=== PATIENT | female | born 1990 | race American Indian/Alaskan Native ===

== ENCOUNTER 2016-10-04 15:08 | Emergency (ER) | payer MEDICAID ==
--- NOTE | 2016-10-04 15:32 | Emergency Department Report ---
Chief Complaint: Skin Rash Stated Complaint: BUMP/RASH IN GENITAL AREA/BURNING Time Seen by Provider: 10/04/16 15:30 - HPI History of Present Illness: pt c/o possible allergic reaction to [place]. PT states she used it on her groin 4 days ago. - ROS Review of Systems: + bumps + groin pain - Exam Physical Exam: PT looks well, non toxic. No acute distress in triage MSE screening note: Focused history and physical exam performed. Due to findings the following was ordered: ED Disposition for MSE Condition: Stable
[2016-10-04 15:35] VITALS: BP 115/56
--- NOTE | 2016-10-04 15:54 | Emergency Department Report ---
ED Female HPI - General Chief complaint: Urogenital-Female Stated complaint: BUMP/RASH IN GENITAL AREA/BURNING Time Seen by Provider: 10/04/16 15:30 Source: patient Mode of arrival: Ambulatory Limitations: No Limitations - History of Present Illness Initial comments: Patient reported that she is air products and vaginal area approximately 3 days ago and a couple of small spot that appears to be burnt. She also has bombed. Which is not new. She said two spots to external vaginal area is burning and red with pain 9/10. reports itching. patient on menses. no vaginal discharge. denies abdominal/pelvic pain. No concerns for STD. MD Complaint: other (vaginal rash from shaving) Onset/Timin -: days(s) Location: labia Radiation: non-radiating Severity: severe Severity scale (0 -10): 9 Quality: burning Consistency: constant Improves with: none Worsens with: none Are you Now?: No Associated Symptoms: vaginal bleeding (menses), rash. denies: vaginal discharge , abdominal pain, nausea/vomiting, fever/chills, headaches, loss of appetite, dysuria, hematuria, seizure, shortness of breath, syncope, weakness - Related Data Sexually active: Yes Previous Rx's Medication Instructions Recorded Last Taken Type Fluconazole [Diflucan] 150 mg PO QDAY #1 tablet 12/17/13 Unknown Rx HYDROcodone/APAP 5-325 [[place] 1 each PO Q6HR PRN #14 tablet 12/17/13 Unknown Rx 5-325 mg TAB] Penicillin Vk [Veetids TAB] 2 tab PO BID #40 tablet 12/17/13 Unknown Rx Sulfamethoxazole/Trimethoprim 1 each PO BID #14 tablet 12/17/13 Unknown Rx [Bactrim Ds] Diphenhydramine HCl [Benadryl GEL] 103 ml TP BID #1 gel..ml. 10/04/16 Unknown Rx predniSONE [Deltasone] 20 mg PO QDAY #2 tab 10/04/16 Unknown Rx Allergies Allergy/AdvReac Type Severity Reaction Status Date / Time No Known Allergies Allergy Unverified 10/04/16 16:40 ED Review of Systems ROS: Stated complaint: BUMP/RASH IN GENITAL AREA/BURNING Other details as noted in HPI Comment: All other systems reviewed and negative Constitutional: denies: chills, fever ENT: denies: throat pain Respiratory: no symptoms reported Cardiovascular: denies: chest pain, palpitations, edema, syncope Gastrointestinal: denies: abdominal pain, nausea, vomiting, diarrhea, constipation, hematemesis, melena, hematochezia Genitourinary: other (rash/). denies: urgency, dysuria, frequency, hematuria, discharge, abnormal menses, dyspareunia Musculoskeletal: denies: back pain, joint swelling, arthralgia, myalgia Skin: rash, pruritus Neurological: denies: headache ED Past Medical Hx - Past Medical History Previous Medical History?: No - Surgical History Past Surgical History?: No - Family History Family history: no significant - Social History Smoking Status: Current Every Day Smoker Substance Use Type: None - Medications Home Medications: Home Medications Medication Instructions Recorded Confirmed Last Taken Type Fluconazole [Diflucan] 150 mg PO QDAY #1 tablet 12/17/13 Unknown Rx HYDROcodone/APAP 5-325 [[place] 1 each PO Q6HR PRN #14 tablet 12/17/13 Unknown Rx 5-325 mg TAB] Penicillin Vk [Veetids TAB] 2 tab PO BID #40 tablet 12/17/13 Unknown Rx Sulfamethoxazole/Trimethoprim 1 each PO BID #14 tablet 12/17/13 Unknown Rx [Bactrim Ds] Diphenhydramine HCl [Benadryl GEL] 103 ml TP BID #1 gel..ml. 10/04/16 Unknown Rx predniSONE [Deltasone] 20 mg PO QDAY #2 tab 10/04/16 Unknown Rx ED Physical Exam - General Limitations: No Limitations General appearance: alert, in no apparent distress - Head Head exam: Present: atraumatic, normocephalic, normal inspection - Eye Eye exam: Present: normal appearance, PERRL, EOMI. Absent: conjunctival injection, periorbital swelling, periorbital tenderness Pupils: Present: normal accommodation - ENT ENT exam: Present: normal exam, normal orophraynx, mucous membranes moist, TM's normal bilaterally, normal external ear exam - Neck Neck exam: Present: normal inspection, full ROM. Absent: tenderness, meningismus, lymphadenopathy - Respiratory Respiratory exam: Present: normal lung sounds bilaterally. Absent: respiratory distress, wheezes, rales, rhonchi, stridor, chest wall tenderness - Cardiovascular Cardiovascular Exam: Present: regular rate, normal rhythm, normal heart sounds - GI/Abdominal GI/Abdominal exam: Present: soft, normal bowel sounds. Absent: distended, tenderness, guarding, rebound, rigid - External exam: Present: erythema, other (mons pubis area with small bumps. noerythema, no blisters or vesicles. 2 erythema area to rt distal labia majoria. no induration or fluctuance.no swelling). Absent: swelling, lesions, lacerations, ecchymosis - Extremities Exam Extremities exam: Present: normal inspection, full ROM, normal capillary refill , calf tenderness. Absent: tenderness, pedal edema, joint swelling - Back Exam Back exam: Present: normal inspection, full ROM. Absent: tenderness, CVA tenderness (R), CVA tenderness (L), muscle spasm, paraspinal tenderness, vertebral tenderness, rash noted - Neurological Exam Neurological exam: Present: alert, oriented X3, normal gait, reflexes normal. Absent: motor sensory deficit - Psychiatric Psychiatric exam: Present: normal affect, normal mood - Skin Skin exam: Present: warm, dry, intact, normal color, rash (see for description) ED Course Vital Signs 10/04/16 15:29 Temperature 98.7 F Pulse Rate 74 Respiratory 16 Rate Blood Pressure 115/56 O2 Sat by Pulse 100 Oximetry - Reevaluation(s) Reevaluation #1: 10/04/16 16:35 Uneventful. ED Medical Decision Making - Medical Decision Making ED Course: Patient reported itching and rash to vaginal area after using zeng. Contact dermatitis vaginal area along with shaving bumps. I discussed with patient treatment plan and diagnosis understanding. Patient discharged home with prescription for prednisone 2 days and Benadryl topical. Follow-up with planer feeder in 2-3 days Critical care attestation.: If time is entered above; I have spent that time in minutes in the direct care of this critically ill patient, excluding procedure time. ED Disposition Clinical Impression: Pruritic rash Contact dermatitis Qualifiers: Contact dermatitis type: irritant Contact dermatitis trigger: cosmetics Qualified Code(s): L24.3 - Irritant contact dermatitis due to cosmetics Disposition: DC-01 TO HOME OR SELFCARE Is pt being admited?: No Does the pt Need Aspirin: No Condition: Stable Instructions: Contact Dermatitis (ED) Additional Instructions: Follow-up with planer feeder Take medication as prescribed Prescriptions: Diphenhydramine HCl [Benadryl GEL] 103 ml TP BID #1 gel..ml. predniSONE [Deltasone] 20 mg PO QDAY #2 tab Referrals: PRIMARY CARE, [Primary Care Provider] - 10/06/16 EMPERATRIZ STEPHEN MD [Staff Physician] - 10/06/16 Forms: Work/School Release Form(ED)
== END 2016-10-04 17:02 | disposition home or self-care (01) ==
LOC: ED 15:08
DX: L24.3 Irritant contact dermatitis due to cosmetics (principal); L29.9 Pruritus, unspecified; F17.200 Nicotine dependence, unspecified, uncomplicated
CPT/HCPCS: 99282

== ENCOUNTER 2017-01-04 12:29 | Emergency (ER) | payer SELFPAY ==
[2017-01-04 14:18] VITALS: BP 106/69
--- NOTE | 2017-01-04 14:23 | Emergency Department Report ---
ED ENT HPI - General Chief complaint: Skin/Abscess/Foreign Body Stated complaint: ABSCESS Time Seen by Provider: 01/04/17 14:14 Source: patient Mode of arrival: Ambulatory Limitations: No Limitations - History of Present Illness Initial comments: PT c/o L and R lower toothache x 3 days. PT states she thinks she is getting an abscess. PT states she was taking Goody's powder but it is not helping. MD complaint: tooth pain -: Gradual, days(s) Location: other (lower R and L molar ) Severity scale (0 -10): 9 Quality: sharp, constant Consistency: constant Improves with: none Worsens with: eating Context- Dental: history of dental caries, poor dental care Associated Symptoms: toothache. denies: fever, gum swelling, sore throat - Related Data Previous Rx's Medication Instructions Recorded Last Taken Type Acetaminophen/Codeine [Tylenol #3] 1 tab PO Q6H PRN #12 tab 01/04/17 Unknown Rx Amoxicillin 500 mg PO BID #20 capsule 01/04/17 Unknown Rx Fluconazole [Diflucan] 150 mg PO QDAY #1 tablet 01/04/17 Unknown Rx Ibuprofen [Motrin] 600 mg PO Q8H PRN #15 tablet 01/04/17 Unknown Rx Allergies Allergy/AdvReac Type Severity Reaction Status Date / Time No Known Allergies Allergy Verified 01/04/17 14:16 ED Dental HPI - General Chief complaint: Skin/Abscess/Foreign Body Stated complaint: ABSCESS Time Seen by Provider: 01/04/17 14:14 - Related Data Previous Rx's Medication Instructions Recorded Last Taken Type Acetaminophen/Codeine [Tylenol #3] 1 tab PO Q6H PRN #12 tab 01/04/17 Unknown Rx Amoxicillin 500 mg PO BID #20 capsule 01/04/17 Unknown Rx Fluconazole [Diflucan] 150 mg PO QDAY #1 tablet 01/04/17 Unknown Rx Ibuprofen [Motrin] 600 mg PO Q8H PRN #15 tablet 01/04/17 Unknown Rx Allergies Allergy/AdvReac Type Severity Reaction Status Date / Time No Known Allergies Allergy Verified 01/04/17 14:16 ED Review of Systems ROS: Stated complaint: ABSCESS Other details as noted in HPI Comment: All other systems reviewed and negative Constitutional: denies: chills, fever ENT: dental pain Gastrointestinal: denies: nausea, vomiting Genitourinary: denies: abnormal menses (on cycle now) Neurological: headache ED Past Medical Hx - Social History Smoking Status: Current Every Day Smoker Substance Use Type: None - Medications Home Medications: Home Medications Medication Instructions Recorded Confirmed Last Taken Type Acetaminophen/Codeine [Tylenol #3] 1 tab PO Q6H PRN #12 tab 01/04/17 Unknown Rx Amoxicillin 500 mg PO BID #20 capsule 01/04/17 Unknown Rx Fluconazole [Diflucan] 150 mg PO QDAY #1 tablet 01/04/17 Unknown Rx Ibuprofen [Motrin] 600 mg PO Q8H PRN #15 tablet 01/04/17 Unknown Rx ED Physical Exam - General Limitations: No Limitations General appearance: alert, in no apparent distress - Head Head exam: Present: atraumatic, normocephalic, normal inspection, other (no facial swelling ) - Eye Eye exam: Present: normal appearance, PERRL, EOMI, conjunctival injection - ENT ENT exam: Present: normal orophraynx, mucous membranes moist, TM's normal bilaterally, normal external ear exam - Expanded ENT Exam Expanded Mouth exam: Absent: drooling, trismus Teeth exam: Present: dental caries (multiple ) 1 - Other (cavity) 2 - Other (cavity) Throat exam: Positive: normal inspection - Neck Neck exam: Present: normal inspection, full ROM. Absent: tenderness, lymphadenopathy - Respiratory Respiratory exam: Present: normal lung sounds bilaterally. Absent: respiratory distress - Cardiovascular Cardiovascular Exam: Present: regular rate, normal rhythm - Extremities Exam Extremities exam: Present: normal inspection, full ROM - Back Exam Back exam: Present: normal inspection, full ROM. Absent: tenderness - Neurological Exam Neurological exam: Present: alert, oriented X3, normal gait - Expanded Neurological Exam Expanded Patient oriented to: Present: person, place, time Speech: Present: fluid speech Best Eye Response ([place]): (4) open spontaneously Best Motor Response ([place]): (6) obeys commands Best Verbal Response ([place]): (5) oriented [place] Total: 15 - Psychiatric Psychiatric exam: Present: normal affect, normal mood - Skin Skin exam: Present: warm, dry, intact, normal color ED Course Vital Signs 01/04/17 14:16 Temperature 98.2 F Pulse Rate 52 L Respiratory 20 Rate Blood Pressure 106/69 O2 Sat by Pulse 99 Oximetry - Reevaluation(s) Reevaluation #1: 01/04/17 14:29 PT aware of dx and plan of care. - Pulse Oximetry Interpretation Digit-Finger Initial Pulse Oximetry Readin Actions Taken: none ED Medical Decision Making - Differential Diagnosis toothache, abscess Critical Care Time: No Critical care attestation.: If time is entered above; I have spent that time in minutes in the direct care of this critically ill patient, excluding procedure time. ED Disposition Clinical Impression: Dental decay, Toothache Disposition: TO HOME OR SELFCARE Is pt being admited?: No Does the pt Need Aspirin: No Condition: Stable Instructions: Dental Abscess (ED), Dental Caries (ED), Toothache (ED) Additional Instructions: Finish all antibiotics No driving or alcohol if you need to take Tylenol #3 for your pain Follow up with Dentist in 3-4 days Prescriptions: Acetaminophen/Codeine [Tylenol #3] 1 tab PO Q6H PRN #12 tab PRN Reason: Pain , Severe (7-10) Amoxicillin 500 mg PO BID #20 capsule Fluconazole [Diflucan] 150 mg PO QDAY #1 tablet Ibuprofen [Motrin] 600 mg PO Q8H PRN #15 tablet PRN Reason: Pain Referrals: PRIMARY MD RENU [Primary Care Provider] - 3-5 Days KALIA PETTY MD [Referring] - 3-5 Days [facility] [Outside] - 3-5 Days [facility] [Outside] - 3-5 Days Forms: Work/School Release Form(ED) Time of Disposition: 14:31
== END 2017-01-04 14:38 | disposition home or self-care (01) ==
LOC: ED 12:29
DX: K08.89 Other specified disorders of teeth and supporting structures (principal); F17.210 Nicotine dependence, cigarettes, uncomplicated
CPT/HCPCS: 99282